=== PATIENT | male | born 1975 | race Caucasian/White ===

== ENCOUNTER → 2017-07-10 | Outpatient (CLI) | payer MEDICARE ==
[~2017-07-10] MED LIST: ALPR2TAB8 PO; AMOX1TAB12 PO; BACL20TA PO; CALC-112 PO; DOCU100C33 PO; HYDR25SU3 PR; METH-356 PO; MULT-257 PO; RIVA15TA PO
[2017-07-10 15:33] LABS: HEMATOCRIT 42.9 % (39.2-51.8); HEMOGLOBIN 14.6 g/dL (13.7-18.0)
== END | disposition home or self-care (01) ==
LOC: CFH 13:36
PROVIDERS: ATTEND Nurse Practitioner Primary Care
DX: M16.11 Unilateral primary osteoarthritis, right hip (principal); K64.9 Unspecified hemorrhoids; E55.9 Vitamin D deficiency, unspecified
CPT/HCPCS: 36415; 72170; 85025

== ENCOUNTER 2017-11-23 10:21 | Emergency (ER) | payer MEDICARE ==
[~2017-11-23] VITALS: Ht 188 cm; Wt 113.6 kg
[2017-11-23] MEDS ORDERED: ALEN10TA6 PO (11:14)
[2017-11-23 11:31] LABS: BASOPHILS # (AUTO) 0.02 x10^3/uL (0-0.1); BASOPHILS % (AUTO) 0 % (0-1); EOSINOPHILS # (AUTO) 0.08 x10^3/uL (0-0.4); EOSINOPHILS % (AUTO) 2 % (1-7); LYMPHOCYTES # (AUTO) 1.72 x10^3/uL (1-3.4); LYMPHOCYTES % (AUTO) 33 % (22-44); MD NO; MEAN CORPUSCULAR HEMOGLOBIN 30.3 pg (27.5-34.5); MEAN CORPUSCULAR HGB CONC 33.8 g/dL (33.2-36.2); MEAN CORPUSCULAR VOLUME 89.7 fL (81-97); MEAN PLATELET VOLUME 8.3 fL (7.4-10.4); MONOCYTES # (AUTO) 0.29 x10^3/uL (0.2-0.8); MONOCYTES % (AUTO) 6 % (2-9); NEUTROPHILS # (AUTO) 3.06 x10^3/uL (1.8-6.8); NEUTROPHILS % (AUTO) 59 % (42-75); PLATELET COUNT 237 x10^3/uL (130-400); RED BLOOD COUNT 4.59 x10^6/uL (4.38-5.82); RED CELL DISTRIBUTION WIDTH 13.6 % (9.4-14.8)
[2017-11-23 11:39] LABS: ALBUMIN 3.6 g/dL (3.4-5.0); ANION GAP 6 mmol/L (5-15); CALCIUM 8.7 mg/dL (8.5-10.1); CHLORIDE 108 mmol/L (98-107)
[2017-11-23 11:44] LABS: ALANINE AMINOTRANSFERASE 24 U/L (12-78); ALKALINE PHOSPHATASE 92 U/L (45-117); BILIRUBIN,TOTAL 0.4 mg/dL (0.2-1.0); CREATININE 0.87 mg/dL (0.7-1.3); TOTAL PROTEIN 7.5 g/dL (6.4-8.2)
[2017-11-23 11:58] LABS: MICROSCOPIC NOT IND
[2017-11-23 12:11] LABS: CULTURE INDICATED? NO
[2017-11-23 13:01] VITALS: BP 145/100
[2017-11-23] MEDS ORDERED: OMNIPAQUE 350 MG/ML, 100ML BOTTLE ONE (14:08)
== END 2017-11-23 15:40 | disposition home or self-care (01) ==
LOC: ED 12:07
DX: R10.84 Generalized abdominal pain (principal); R30.0 Dysuria; Z86.718 Personal history of other venous thrombosis and embolism
CPT/HCPCS: 36415; 74177; 80053; 81003; 83690; 85025; 99285; Q9967

== ENCOUNTER → 2018-12-15 | Outpatient (CLI) | payer MEDICARE, OTHER ==
[~2018-12-15] MED LIST changes: +ALEN10TA6 PO; -METH-356 PO; +METH10TA2 PO
== END | disposition home or self-care (01) ==
LOC: WOUND 12:54
PROVIDERS: ATTEND Nurse Practitioner Family
DX: L97.322 Non-pressure chronic ulcer of left ankle with fat layer exposed (principal); G82.21 Paraplegia, complete; F41.9 Anxiety disorder, unspecified; Z89.611 Acquired absence of right leg above knee; Z87.891 Personal history of nicotine dependence
CPT/HCPCS: 97597; G0463

== ENCOUNTER → 2018-12-22 | Outpatient (CLI) | payer MEDICARE, OTHER | END | disposition home or self-care (01) | LOC: WOUND 13:29 | PROVIDERS: ATTEND Nurse Practitioner Family | DX: L97.322 Non-pressure chronic ulcer of left ankle with fat layer exposed (principal); G82.21 Paraplegia, complete; F41.9 Anxiety disorder, unspecified; Z89.611 Acquired absence of right leg above knee; Z87.891 Personal history of nicotine dependence | CPT/HCPCS: 97597 ==

== ENCOUNTER → 2018-12-29 | Outpatient (CLI) | payer MEDICARE, OTHER | END | disposition home or self-care (01) | LOC: WOUND 14:34 | PROVIDERS: ATTEND Nurse Practitioner Family | DX: I87.312 Chronic venous hypertension (idiopathic) with ulcer of left lower extremity (principal); L97.323 Non-pressure chronic ulcer of left ankle with necrosis of muscle; G82.21 Paraplegia, complete; F41.9 Anxiety disorder, unspecified; Z89.611 Acquired absence of right leg above knee; Z87.891 Personal history of nicotine dependence | CPT/HCPCS: 97597 ==

== ENCOUNTER → 2019-01-05 | Outpatient (CLI) | payer MEDICARE, OTHER | END | disposition home or self-care (01) | LOC: WOUND 10:51 | PROVIDERS: ATTEND Internal Medicine Infectious Disease | DX: I87.312 Chronic venous hypertension (idiopathic) with ulcer of left lower extremity (principal); L97.323 Non-pressure chronic ulcer of left ankle with necrosis of muscle; L89.523 Pressure ulcer of left ankle, stage 3; G82.21 Paraplegia, complete; F41.9 Anxiety disorder, unspecified; Z89.611 Acquired absence of right leg above knee; Z87.891 Personal history of nicotine dependence | CPT/HCPCS: 97597 ==

== ENCOUNTER → 2019-01-19 | Outpatient (CLI) | payer MEDICARE, OTHER | END | disposition home or self-care (01) | LOC: WOUND 11:00 | PROVIDERS: ATTEND Nurse Practitioner Family | DX: I87.312 Chronic venous hypertension (idiopathic) with ulcer of left lower extremity (principal); L97.321 Non-pressure chronic ulcer of left ankle limited to breakdown of skin; L89.523 Pressure ulcer of left ankle, stage 3; G82.21 Paraplegia, complete; F41.9 Anxiety disorder, unspecified; Z89.611 Acquired absence of right leg above knee; Z87.891 Personal history of nicotine dependence | CPT/HCPCS: G0463 ==

== ENCOUNTER → 2019-04-21 | Outpatient (CLI) | payer MEDICARE, OTHER ==
[~2019-04-21] MED LIST changes: +AMOX1TAB64 PO; +DOXY100T PO; +ENOX40SY4 SQ; +PANT40TA5 PO
[2019-04-21 15:32] LABS: BASOPHILS # (AUTO) 0.03 x10^3/uL (0-0.1); BASOPHILS % (AUTO) 1 % (0-1); EOSINOPHILS # (AUTO) 0.17 x10^3/uL (0-0.4); EOSINOPHILS % (AUTO) 3 % (1-7); LYMPHOCYTES # (AUTO) 1.51 x10^3/uL (1-3.4); LYMPHOCYTES % (AUTO) 27 % (22-44); MD NO; MEAN CORPUSCULAR HEMOGLOBIN 24.4 pg (27.5-34.5); MEAN CORPUSCULAR HGB CONC 31.2 g/dL (33.2-36.2); MEAN CORPUSCULAR VOLUME 78.2 fL (81-97); MEAN PLATELET VOLUME 7.5 fL (7.4-10.4); MONOCYTES # (AUTO) 0.34 x10^3/uL (0.2-0.8); MONOCYTES % (AUTO) 6 % (2-9); NEUTROPHILS # (AUTO) 3.51 x10^3/uL (1.8-6.8); NEUTROPHILS % (AUTO) 63 % (42-75); PLATELET COUNT 427 x10^3/uL (130-400); RED BLOOD COUNT 3.78 x10^6/uL (4.38-5.82)
[2019-04-21 15:44] LABS: ALBUMIN 3.3 g/dL (3.4-5.0); ANION GAP 6 mmol/L (5-15); CALCIUM 8.8 mg/dL (8.5-10.1); CHLORIDE 106 mmol/L (98-107)
[2019-04-21 16:09] LABS: % IRON SATURATION 9 % (20-55); ALANINE AMINOTRANSFERASE 22 U/L (12-78); ALKALINE PHOSPHATASE 289 U/L (45-117); BILIRUBIN,TOTAL 0.3 mg/dL (0.2-1.0); CREATININE 0.65 mg/dL (0.7-1.3); IRON LEVEL 31 mcg/dL (65-175); TOTAL IRON BINDING CAPACITY 344 mcg/dL (250-450); TOTAL PROTEIN 7.4 g/dL (6.4-8.2); TRANSFERRIN 286 mg/dL (200-360)
[2019-04-21 16:16] LABS: FOLATE LEVEL > 20.0 ng/mL (3.1-17.5)
== END | disposition home or self-care (01) ==
LOC: CFH 11:27
PROVIDERS: ATTEND Nurse Practitioner Primary Care
DX: Z13.220 Encounter for screening for lipoid disorders (principal); Z12.11 Encounter for screening for malignant neoplasm of colon; E55.9 Vitamin D deficiency, unspecified; F60.4 Histrionic personality disorder; G82.20 Paraplegia, unspecified; G89.4 Chronic pain syndrome; M25.511 Pain in right shoulder; R53.83 Other fatigue; R33.9 Retention of urine, unspecified; K64.9 Unspecified hemorrhoids; R25.2 Cramp and spasm; R51 Headache; L89.95 Pressure ulcer of unspecified site, unstageable; I10 Essential (primary) hypertension; D64.9 Anemia, unspecified; M79.662 Pain in left lower leg; R01.1 Cardiac murmur, unspecified
CPT/HCPCS: 36415; 80053; 82607; 82728; 82746; 83540; 83550; 84466; 85025

== ENCOUNTER → 2019-04-21 | Outpatient (CLI) | payer MEDICARE, OTHER | END | disposition home or self-care (01) | LOC: WOUND 10:00 | PROVIDERS: ATTEND Internal Medicine | DX: L97.321 Non-pressure chronic ulcer of left ankle limited to breakdown of skin (principal); L89.43 Pressure ulcer of contiguous site of back, buttock and hip, stage 3; S41.101A Unspecified open wound of right upper arm, initial encounter; L03.116 Cellulitis of left lower limb; M84.462K Pathological fracture, left tibia, subsequent encounter for fracture with nonunion; M84.464A Pathological fracture, left fibula, initial encounter for fracture; M62.3 Immobility syndrome (paraplegic); G82.21 Paraplegia, complete; G89.29 Other chronic pain; M54.6 Pain in thoracic spine; M81.0 Age-related osteoporosis without current pathological fracture; G43.909 Migraine, unspecified, not intractable, without status migrainosus; F41.9 Anxiety disorder, unspecified; E66.01 Morbid (severe) obesity due to excess calories; Z68.36 Body mass index [BMI] 36.0-36.9, adult; Z89.611 Acquired absence of right leg above knee; Z87.891 Personal history of nicotine dependence; Z90.49 Acquired absence of other specified parts of digestive tract; Z79.899 Other long term (current) drug therapy; Z86.718 Personal history of other venous thrombosis and embolism; X58.XXXA Exposure to other specified factors, initial encounter; Y93.89 Activity, other specified; Y92.89 Other specified places as the place of occurrence of the external cause; Y99.8 Other external cause status | CPT/HCPCS: 97597; G0463 ==

== ENCOUNTER → 2019-04-28 | Outpatient (CLI) | payer MEDICARE, OTHER | END | disposition home or self-care (01) | LOC: WOUND 09:51 | PROVIDERS: ATTEND Internal Medicine | DX: T81.89XA Other complications of procedures, not elsewhere classified, initial encounter (principal); L89.43 Pressure ulcer of contiguous site of back, buttock and hip, stage 3; L89.520 Pressure ulcer of left ankle, unstageable; S41.101D Unspecified open wound of right upper arm, subsequent encounter; L03.116 Cellulitis of left lower limb; M84.464D Pathological fracture, left fibula, subsequent encounter for fracture with routine healing; M84.462K Pathological fracture, left tibia, subsequent encounter for fracture with nonunion; M62.3 Immobility syndrome (paraplegic); G82.21 Paraplegia, complete; G89.29 Other chronic pain; M54.6 Pain in thoracic spine; M81.0 Age-related osteoporosis without current pathological fracture; G43.909 Migraine, unspecified, not intractable, without status migrainosus; F41.9 Anxiety disorder, unspecified; E66.01 Morbid (severe) obesity due to excess calories; Z68.36 Body mass index [BMI] 36.0-36.9, adult; Z89.611 Acquired absence of right leg above knee; Z90.49 Acquired absence of other specified parts of digestive tract; Z79.899 Other long term (current) drug therapy; Z86.718 Personal history of other venous thrombosis and embolism; X58.XXXD Exposure to other specified factors, subsequent encounter; Y83.8 Other surgical procedures as the cause of abnormal reaction of the patient, or of later complication, without mention of misadventure at the time of the procedure; Y92.89 Other specified places as the place of occurrence of the external cause | CPT/HCPCS: 87070; 87077; 87186; 87205; 97597 ==

== ENCOUNTER 2019-05-05 08:28 | Outpatient (CLI) | payer MEDICARE, OTHER ==
[~2019-05-05 08:28] MED LIST changes: -ALEN10TA6 PO; +ALEN10TA7 PO
== END 2019-05-05 23:59 | disposition home or self-care (01) ==
LOC: WOUND 08:28
PROVIDERS: ATTEND Internal Medicine
DX: T81.89XD Other complications of procedures, not elsewhere classified, subsequent encounter (principal); L89.43 Pressure ulcer of contiguous site of back, buttock and hip, stage 3; L89.520 Pressure ulcer of left ankle, unstageable; S41.101D Unspecified open wound of right upper arm, subsequent encounter; L03.116 Cellulitis of left lower limb; M84.464D Pathological fracture, left fibula, subsequent encounter for fracture with routine healing; M84.462K Pathological fracture, left tibia, subsequent encounter for fracture with nonunion; M62.3 Immobility syndrome (paraplegic); G82.21 Paraplegia, complete; G89.29 Other chronic pain; M54.6 Pain in thoracic spine; M81.0 Age-related osteoporosis without current pathological fracture; G43.909 Migraine, unspecified, not intractable, without status migrainosus; F41.9 Anxiety disorder, unspecified; E66.01 Morbid (severe) obesity due to excess calories; Z68.36 Body mass index [BMI] 36.0-36.9, adult; Z89.611 Acquired absence of right leg above knee; Z90.49 Acquired absence of other specified parts of digestive tract; Z79.899 Other long term (current) drug therapy; Z86.718 Personal history of other venous thrombosis and embolism; X58.XXXD Exposure to other specified factors, subsequent encounter
CPT/HCPCS: 97597

== ENCOUNTER 2019-05-12 09:34 | Outpatient (CLI) | payer MEDICARE, OTHER | END 2019-05-12 23:59 | disposition home or self-care (01) | LOC: WOUND 09:34 | PROVIDERS: ATTEND Internal Medicine | DX: T81.89XD Other complications of procedures, not elsewhere classified, subsequent encounter (principal); L89.43 Pressure ulcer of contiguous site of back, buttock and hip, stage 3; L89.520 Pressure ulcer of left ankle, unstageable; S41.101D Unspecified open wound of right upper arm, subsequent encounter; L03.116 Cellulitis of left lower limb; M84.464D Pathological fracture, left fibula, subsequent encounter for fracture with routine healing; M62.3 Immobility syndrome (paraplegic); M54.6 Pain in thoracic spine; G89.29 Other chronic pain; G82.21 Paraplegia, complete; M81.0 Age-related osteoporosis without current pathological fracture; G43.909 Migraine, unspecified, not intractable, without status migrainosus; F41.9 Anxiety disorder, unspecified; E66.01 Morbid (severe) obesity due to excess calories; Z68.36 Body mass index [BMI] 36.0-36.9, adult; Z89.611 Acquired absence of right leg above knee; Z90.49 Acquired absence of other specified parts of digestive tract; Z79.899 Other long term (current) drug therapy; Z86.718 Personal history of other venous thrombosis and embolism; X58.XXXD Exposure to other specified factors, subsequent encounter; Y83.8 Other surgical procedures as the cause of abnormal reaction of the patient, or of later complication, without mention of misadventure at the time of the procedure | CPT/HCPCS: 97597 ==

== ENCOUNTER 2019-05-19 10:58 | Outpatient (CLI) | payer MEDICARE, OTHER | END 2019-05-19 23:59 | disposition home or self-care (01) | LOC: WOUND 10:58 | PROVIDERS: ATTEND Internal Medicine | DX: T81.89XD Other complications of procedures, not elsewhere classified, subsequent encounter (principal); L89.43 Pressure ulcer of contiguous site of back, buttock and hip, stage 3; L89.520 Pressure ulcer of left ankle, unstageable; S41.101D Unspecified open wound of right upper arm, subsequent encounter; L03.116 Cellulitis of left lower limb; M84.464D Pathological fracture, left fibula, subsequent encounter for fracture with routine healing; M62.3 Immobility syndrome (paraplegic); M54.6 Pain in thoracic spine; G89.29 Other chronic pain; G82.21 Paraplegia, complete; M81.0 Age-related osteoporosis without current pathological fracture; G43.909 Migraine, unspecified, not intractable, without status migrainosus; F41.9 Anxiety disorder, unspecified; E66.01 Morbid (severe) obesity due to excess calories; Z68.36 Body mass index [BMI] 36.0-36.9, adult; Z89.611 Acquired absence of right leg above knee; Z90.49 Acquired absence of other specified parts of digestive tract; Z79.899 Other long term (current) drug therapy; Z86.718 Personal history of other venous thrombosis and embolism; X58.XXXD Exposure to other specified factors, subsequent encounter; Y83.8 Other surgical procedures as the cause of abnormal reaction of the patient, or of later complication, without mention of misadventure at the time of the procedure | CPT/HCPCS: 97597 ==

== ENCOUNTER 2019-05-26 09:49 | Outpatient (CLI) | payer MEDICARE, OTHER | END 2019-05-26 23:59 | disposition home or self-care (01) | LOC: WOUND 09:49 | PROVIDERS: ATTEND Internal Medicine | DX: T81.89XD Other complications of procedures, not elsewhere classified, subsequent encounter (principal); L89.43 Pressure ulcer of contiguous site of back, buttock and hip, stage 3; L89.520 Pressure ulcer of left ankle, unstageable; S41.101D Unspecified open wound of right upper arm, subsequent encounter; L03.116 Cellulitis of left lower limb; M84.464D Pathological fracture, left fibula, subsequent encounter for fracture with routine healing; M62.3 Immobility syndrome (paraplegic); M54.6 Pain in thoracic spine; G89.29 Other chronic pain; G82.21 Paraplegia, complete; M81.0 Age-related osteoporosis without current pathological fracture; G43.909 Migraine, unspecified, not intractable, without status migrainosus; F41.9 Anxiety disorder, unspecified; E66.01 Morbid (severe) obesity due to excess calories; Z68.36 Body mass index [BMI] 36.0-36.9, adult; Z89.611 Acquired absence of right leg above knee; Z90.49 Acquired absence of other specified parts of digestive tract; Z79.899 Other long term (current) drug therapy; Z86.718 Personal history of other venous thrombosis and embolism; X58.XXXD Exposure to other specified factors, subsequent encounter; Y83.8 Other surgical procedures as the cause of abnormal reaction of the patient, or of later complication, without mention of misadventure at the time of the procedure | CPT/HCPCS: 97597 ==

== ENCOUNTER 2019-09-20 09:05 | Outpatient (CLI) | payer MEDICARE, OTHER ==
[2019-09-20 12:56] LABS: BASOPHILS # (AUTO) 0.05 x10^3/uL (0-0.1); BASOPHILS % (AUTO) 1 % (0-1); EOSINOPHILS # (AUTO) 0.14 x10^3/uL (0-0.4); EOSINOPHILS % (AUTO) 2 % (1-7); LYMPHOCYTES # (AUTO) 1.57 x10^3/uL (1-3.4); LYMPHOCYTES % (AUTO) 24 % (22-44); MD NO; MEAN CORPUSCULAR HEMOGLOBIN 27.2 pg (27.5-34.5); MEAN CORPUSCULAR HGB CONC 31.6 g/dL (33.2-36.2); MEAN CORPUSCULAR VOLUME 85.9 fL (81-97); MEAN PLATELET VOLUME 8.5 fL (7.4-10.4); MONOCYTES # (AUTO) 0.38 x10^3/uL (0.2-0.8); MONOCYTES % (AUTO) 6 % (2-9); NEUTROPHILS # (AUTO) 4.42 x10^3/uL (1.8-6.8); NEUTROPHILS % (AUTO) 67 % (42-75); PLATELET COUNT 311 x10^3/uL (130-400); RED BLOOD COUNT 4.69 x10^6/uL (4.38-5.82); RED CELL DISTRIBUTION WIDTH 16.9 % (9.4-14.8)
[2019-09-20 13:00] LABS: MICROSCOPIC NOT IND
[2019-09-20 13:04] LABS: CULTURE INDICATED? NO
[2019-09-20 13:13] LABS: CHLORIDE 104 mmol/L (98-107)
[2019-09-20 13:36] LABS: HEMOGLOBIN A1C 5.9 % (4.2-6.3)
[2019-09-20 13:43] LABS: % IRON SATURATION 15 % (20-55); ALANINE AMINOTRANSFERASE 36 U/L (12-78); ALBUMIN 3.8 g/dL (3.4-5.0); ALKALINE PHOSPHATASE 179 U/L (45-117); ANION GAP 4 mmol/L (5-15); BILIRUBIN,TOTAL 0.4 mg/dL (0.2-1.0); CALCIUM 9.7 mg/dL (8.5-10.1); CHOL/HDL RATIO 3.3; CHOLESTEROL, TOTAL 180 mg/dL (140-239); CREATININE 0.85 mg/dL (0.7-1.3); HDL CHOL % 30 % (26-37); HDL CHOLESTEROL (DIRECT) 54 mg/dL (40-60); IRON LEVEL 64 mcg/dL (65-175); TOTAL IRON BINDING CAPACITY 421 mcg/dL (250-450); TOTAL PROTEIN 8.6 g/dL (6.4-8.2); TRANSFERRIN 373 mg/dL (200-360); TRIGLYCERIDES 64 mg/dL (50-200); VLDL CHOLESTEROL 13 mg/dL (0-25)
[2019-09-20 13:44] LABS: FREE T4 (FREE THYROXINE) 1.13 ng/dL (0.76-1.46); LDL CHOLESTEROL,CALCULATED 113 mg/dL (54-169); LDL/HDL RATIO 2.1 (0.5-3.0); PSA SCREEN 0.23 ng/mL (0.00-4.00)
[2019-09-20 13:46] LABS: FOLATE LEVEL > 20.0 ng/mL (3.1-17.5)
== END 2019-09-20 23:59 | disposition home or self-care (01) ==
LOC: CFH 09:05
PROVIDERS: ATTEND Nurse Practitioner Primary Care
DX: Z12.5 Encounter for screening for malignant neoplasm of prostate (principal); R79.9 Abnormal finding of blood chemistry, unspecified; D64.9 Anemia, unspecified; E55.9 Vitamin D deficiency, unspecified; G82.20 Paraplegia, unspecified; G89.4 Chronic pain syndrome; I10 Essential (primary) hypertension; F06.4 Anxiety disorder due to known physiological condition; S81.809A Unspecified open wound, unspecified lower leg, initial encounter; X58.XXXA Exposure to other specified factors, initial encounter; Y93.89 Activity, other specified; Y92.89 Other specified places as the place of occurrence of the external cause; Y99.8 Other external cause status
CPT/HCPCS: 36415; 80053; 80061; 81003; 82043; 82306; 82607; 82728; 82746; 83036; 83540; 83550; 84207; 84425; 84439; 84443; 84466; 84481; 85025; G0103

== ENCOUNTER → 2019-09-21 | Outpatient (CLI) | payer MEDICARE, MEDICAID | END | disposition home or self-care (01) | LOC: WOUND 13:19 | PROVIDERS: ATTEND Nurse Practitioner Family | DX: T81.89XD Other complications of procedures, not elsewhere classified, subsequent encounter (principal); I87.311 Chronic venous hypertension (idiopathic) with ulcer of right lower extremity; L89.43 Pressure ulcer of contiguous site of back, buttock and hip, stage 3; L89.513 Pressure ulcer of right ankle, stage 3; S41.101D Unspecified open wound of right upper arm, subsequent encounter; L03.116 Cellulitis of left lower limb; M84.464D Pathological fracture, left fibula, subsequent encounter for fracture with routine healing; M62.3 Immobility syndrome (paraplegic); M54.6 Pain in thoracic spine; G89.29 Other chronic pain; G82.21 Paraplegia, complete; M81.0 Age-related osteoporosis without current pathological fracture; G43.909 Migraine, unspecified, not intractable, without status migrainosus; F41.9 Anxiety disorder, unspecified; E66.01 Morbid (severe) obesity due to excess calories; Z68.36 Body mass index [BMI] 36.0-36.9, adult; Z89.611 Acquired absence of right leg above knee; Z90.49 Acquired absence of other specified parts of digestive tract; Z79.899 Other long term (current) drug therapy; Z86.718 Personal history of other venous thrombosis and embolism; X58.XXXD Exposure to other specified factors, subsequent encounter; Y83.8 Other surgical procedures as the cause of abnormal reaction of the patient, or of later complication, without mention of misadventure at the time of the procedure | CPT/HCPCS: 97597; G0463 ==

== ENCOUNTER 2019-09-28 08:41 | Day surgery (SDC) | payer MEDICARE, MEDICAID ==
[~2019-09-28] VITALS: Ht 188 cm; Wt 131.0 kg
[2019-09-28] MEDS ORDERED: HYDR12.517 PO (09:25)
[2019-09-28 09:26] VITALS: BP 144/83
[2019-09-28] MEDS ORDERED: LACTATED RINGERS 1,000 ML IV SCH (09:49)
[2019-09-28] MEDS ORDERED: MIDAZOLAM 1 MG/ML, 2ML ONE (11:24)
[2019-09-28] MEDS ORDERED: NEOSPORIN OINT, 15GM ONE (11:24)
[2019-09-28] MEDS ORDERED: BUPIVACAINE/PF 0.5% ONE (11:24)
[2019-09-28] MEDS ORDERED: FENTANYL PF 100 MCG/2ML ONE (11:24)
[2019-09-28] MEDS ORDERED: EPINEPHRINE 1 MG/ML, 1ML ONE (11:24)
[2019-09-28] MEDS ORDERED: CEFAZOLIN 1,000 MG ONE (11:47)
[2019-09-28] MEDS ORDERED: ONDANSETRON 2MG/ML, 2ML ONE (11:47)
[2019-09-28] MEDS ORDERED: PROPOFOL 50 ML ONE (12:20)
[2019-09-28] MEDS ORDERED: MIDAZOLAM 1 MG/ML, 2ML IV PRN (12:30)
[2019-09-28] MEDS ORDERED: DIAZEPAM 5 MG/ML, 2ML IVPush PRN (12:30)
[2019-09-28] MEDS ORDERED: ONDANSETRON 2MG/ML, 2ML IV PRN (12:30)
[2019-09-28] MEDS ORDERED: DIPHENHYDRAMINE 50 MG/ML, 1ML IVPush PRN (12:30)
[2019-09-28] MEDS ORDERED: EPHEDRINE 50 MG/ML, 1ML IVPush PRN (12:30)
[2019-09-28] MEDS ORDERED: ONDANSETRON ODT 8 MG PO PRN (12:30)
[2019-09-28] MEDS ORDERED: FENTANYL PF 100 MCG/2ML IV PRN (12:30)
[2019-09-28 13:28] LABS: HCT (SEDRATE) 37.2 % (39.2-51.8)
== END 2019-09-28 14:45 | disposition home or self-care (01) ==
LOC: OUT 08:41
PROVIDERS: ATTEND Orthopaedic Surgery
DX: T81.42XA Infection following a procedure, deep incisional surgical site, initial encounter (principal); T84.127A Displacement of internal fixation device of bone of left lower leg, initial encounter; G82.20 Paraplegia, unspecified; Y83.8 Other surgical procedures as the cause of abnormal reaction of the patient, or of later complication, without mention of misadventure at the time of the procedure
CPT/HCPCS: 13160; 20680; 36415; 73600; 85651; 86140; 87015; 87070; 87075; 87077; 87102; 87116; 87176; 87186; 87205; 87206; J0171; J0690; J2250; J2405; J2704; J3010; 76000

== ENCOUNTER → 2019-10-12 | Outpatient (CLI) | payer MEDICARE, MEDICAID ==
[~2019-10-12] MED LIST changes: +HYDR12.517 PO
== END | disposition home or self-care (01) ==
LOC: WOUND 10:56
PROVIDERS: ATTEND Nurse Practitioner Family
DX: T81.89XD Other complications of procedures, not elsewhere classified, subsequent encounter (principal); I87.311 Chronic venous hypertension (idiopathic) with ulcer of right lower extremity; L89.43 Pressure ulcer of contiguous site of back, buttock and hip, stage 3; L89.513 Pressure ulcer of right ankle, stage 3; S41.101D Unspecified open wound of right upper arm, subsequent encounter; L03.116 Cellulitis of left lower limb; M84.464D Pathological fracture, left fibula, subsequent encounter for fracture with routine healing; M62.3 Immobility syndrome (paraplegic); M54.6 Pain in thoracic spine; G89.29 Other chronic pain; G82.21 Paraplegia, complete; M81.0 Age-related osteoporosis without current pathological fracture; G43.909 Migraine, unspecified, not intractable, without status migrainosus; F41.9 Anxiety disorder, unspecified; E66.01 Morbid (severe) obesity due to excess calories; Z68.36 Body mass index [BMI] 36.0-36.9, adult; Z89.611 Acquired absence of right leg above knee; Z90.49 Acquired absence of other specified parts of digestive tract; Z79.899 Other long term (current) drug therapy; Z86.718 Personal history of other venous thrombosis and embolism; X58.XXXD Exposure to other specified factors, subsequent encounter; Y83.8 Other surgical procedures as the cause of abnormal reaction of the patient, or of later complication, without mention of misadventure at the time of the procedure
CPT/HCPCS: G0463

== ENCOUNTER → 2019-11-08 | Outpatient (CLI) | payer MEDICARE, MEDICAID ==
[2019-11-08 12:58] LABS: BASOPHILS # (AUTO) 0.03 x10^3/uL (0-0.1); BASOPHILS % (AUTO) 1 % (0-1); EOSINOPHILS # (AUTO) 0.12 x10^3/uL (0-0.4); EOSINOPHILS % (AUTO) 2 % (1-7); LYMPHOCYTES # (AUTO) 1.48 x10^3/uL (1-3.4); LYMPHOCYTES % (AUTO) 26 % (22-44); MD NO; MEAN CORPUSCULAR HEMOGLOBIN 27.9 pg (27.5-34.5); MEAN CORPUSCULAR HGB CONC 32.3 g/dL (33.2-36.2); MEAN CORPUSCULAR VOLUME 86.2 fL (81-97); MEAN PLATELET VOLUME 8.6 fL (7.4-10.4); MONOCYTES # (AUTO) 0.36 x10^3/uL (0.2-0.8); MONOCYTES % (AUTO) 6 % (2-9); NEUTROPHILS # (AUTO) 3.71 x10^3/uL (1.8-6.8); NEUTROPHILS % (AUTO) 65 % (42-75); PLATELET COUNT 247 x10^3/uL (130-400); RED BLOOD COUNT 3.64 x10^6/uL (4.38-5.82); RED CELL DISTRIBUTION WIDTH 17.1 % (9.4-14.8)
[2019-11-08 13:03] LABS: HCT (SEDRATE) 31.4 % (39.2-51.8)
[2019-11-08 13:19] LABS: ALBUMIN 3.2 g/dL (3.4-5.0); ANION GAP 6 mmol/L (5-15); CALCIUM 8.9 mg/dL (8.5-10.1); CHLORIDE 106 mmol/L (98-107)
[2019-11-08 13:26] LABS: ALANINE AMINOTRANSFERASE 45 U/L (12-78); ALKALINE PHOSPHATASE 144 U/L (45-117); BILIRUBIN,TOTAL 0.3 mg/dL (0.2-1.0); C-REACTIVE PROTEIN, QUANT 0.81 mg/dL (0.02-0.49); CREATININE 0.75 mg/dL (0.7-1.3); TOTAL PROTEIN 7.4 g/dL (6.4-8.2)
== END | disposition home or self-care (01) ==
LOC: CFH 11:28
PROVIDERS: ATTEND Orthopaedic Surgery
DX: S82.132D Displaced fracture of medial condyle of left tibia, subsequent encounter for closed fracture with routine healing (principal); T84.89XD Other specified complication of internal orthopedic prosthetic devices, implants and grafts, subsequent encounter; X58.XXXA Exposure to other specified factors, initial encounter; Y92.89 Other specified places as the place of occurrence of the external cause; Y93.89 Activity, other specified; Y99.8 Other external cause status
CPT/HCPCS: 36415; 80053; 85025; 85651; 86140

== ENCOUNTER → 2019-11-09 | Outpatient (CLI) | payer MEDICARE, MEDICAID | END | disposition home or self-care (01) | LOC: CFH 14:54 | PROVIDERS: ATTEND Internal Medicine | DX: L89.90 Pressure ulcer of unspecified site, unspecified stage (principal); R60.9 Edema, unspecified; I10 Essential (primary) hypertension; E78.2 Mixed hyperlipidemia; Z86.718 Personal history of other venous thrombosis and embolism ==

== ENCOUNTER 2020-05-10 13:38 | Outpatient (CLI) | payer MEDICARE, MEDICAID ==
[~2020-05-10 13:38] MED LIST changes: +ALEN10TA10 PO; -ALEN10TA7 PO; +ALPR0.254 PO
[2020-05-10 16:39] LABS: BASOPHILS # (AUTO) 0.05 x10^3/uL (0-0.1); BASOPHILS % (AUTO) 1 % (0-1); EOSINOPHILS % (AUTO) 3 % (1-7); LYMPHOCYTES # (AUTO) 1.41 x10^3/uL (1-3.4); LYMPHOCYTES % (AUTO) 21 % (22-44); MD NO; MEAN CORPUSCULAR HEMOGLOBIN 25.3 pg (27.5-34.5); MEAN CORPUSCULAR HGB CONC 31.8 g/dL (33.2-36.2); MEAN CORPUSCULAR VOLUME 79.5 fL (81-97); MEAN PLATELET VOLUME 8.8 fL (7.4-10.4); MONOCYTES # (AUTO) 0.36 x10^3/uL (0.2-0.8); MONOCYTES % (AUTO) 5 % (2-9); NEUTROPHILS # (AUTO) 4.68 x10^3/uL (1.8-6.8); NEUTROPHILS % (AUTO) 70 % (42-75); PLATELET COUNT 283 x10^3/uL (130-400); RED BLOOD COUNT 4.62 x10^6/uL (4.38-5.82); RED CELL DISTRIBUTION WIDTH 20.4 % (9.4-14.8)
[2020-05-10 17:22] LABS: HCT (SEDRATE) 36.7 % (39.2-51.8)
== END 2020-05-10 23:59 | disposition home or self-care (01) ==
LOC: CFH 13:38
PROVIDERS: ATTEND Orthopaedic Surgery
DX: M86.662 Other chronic osteomyelitis, left tibia and fibula (principal)
CPT/HCPCS: 36415; 85025; 85651; 86140

== ENCOUNTER → 2020-10-11 | Outpatient (CLI) | payer MEDICARE, MEDICAID ==
[~2020-10-11] MED LIST changes: -PANT40TA5 PO; +PANT40TA6 PO
== END | disposition home or self-care (01) ==
LOC: RAD 13:31
PROVIDERS: ATTEND Nurse Practitioner Family
DX: M19.011 Primary osteoarthritis, right shoulder (principal); M75.51 Bursitis of right shoulder